=== PATIENT | female | born 1990 | race African-American/Black ===

== ENCOUNTER 2022-09-20 10:00 | Inpatient (IN) ==
[2022-09-20] MEDS: BETAMETH SODIUM PHOS/ACETATE 30 MG/5 ML VIAL IM SCH ×2 (11:38→23:56)
[2022-09-20] MEDS: LABETALOL 100 MG TABLET PO SCH (18:47)
[2022-09-20] MEDS ORDERED: guaiFENesin 200 MG/10 ML UDCUP PO PRN (22:47)
[2022-09-21] MEDS: LABETALOL 100 MG TABLET PO SCH ×3 (00:12→20:51)
[2022-09-21] MEDS ORDERED: CITRIC ACID/SODIUM CITRATE 30 ML UDCUP PO ONE ×3 (07:55→08:30)
[2022-09-21] MEDS ORDERED: METHYLERGONOVINE 0.2 MG/1 ML AMP IM PRN ×2 (07:55→07:57)
[2022-09-21] MEDS ORDERED: miSOPROStoL 200 MCG TABLET RECTAL PRN ×2 (07:55→07:57)
[2022-09-21] MEDS ORDERED: OXYTOCIN/LR 20 UNIT/1,000 ML BAG IV ONE ×2 (07:55→07:57)
[2022-09-21] MEDS ORDERED: TRANEXAMIC ACID 1,000 MG in SODIUM CHLORIDE 0.9% 100 ML IV PRN ×2 (07:55→07:57)
[2022-09-21] MEDS ORDERED: CARBOPROST TROMETHAMINE 250 MCG/ML AMP IM PRN ×2 (07:55→07:57)
[2022-09-21] MEDS ORDERED: FAMOTIDINE 20 MG/2 ML VIAL IV ONE (07:57)
[2022-09-21] MEDS ORDERED: OXYTOCIN 10 UNIT/ML VIAL IM ONE (07:59)
[2022-09-21] MEDS ORDERED: OXYTOCIN/LR 30 UNIT/1,000 ML BAG IV ONE ×2 (07:59→08:30)
[2022-09-21] MEDS ORDERED: LACTATED RINGERS 1,000 ML IV SCH (08:00)
[2022-09-21] MEDS ORDERED: ceFAZolin 2,000 MG/50 ML DUPLEX IV ONE (08:15)
[2022-09-21 08:22] LABS: Basophils % 0.2 % (0.0-0.8); Hematocrit 33.6 VOL% (35.7-47.0); Hemoglobin 10.8 GM/DL (12.0-16.0); Immature Granulocytes % 2.5 %; Immature Granulocytes Absolute 0.32 #; Lymphocytes # 1.1 10*3/uL (1.4-4.0); Lymphocytes % 8.7 % (21.3-54.2); Mean Corpuscular HGB Conc 32.1 GM/DL (32-36); Mean Platelet Volume 9.7 FL (9.6-12.0); Monocytes # 0.3 10*3/uL (0.11-0.8); Monocytes % 2.1 % (1.7-12.7); Neutrophils % 86.5 % (38.7-73.9); Platelet Count 343 T/CUMM (130-400); Red Blood Count 3.86 MC/CUMM (3.8-5.5); Red Cell Distribution Width 14.3 % (9.3-17.3); White Blood Count 12.9 T/CUMM (4-12)
[2022-09-21] MEDS ORDERED: ceFAZolin 3,000 MG in SYRINGE 1 EACH IV ONE ×2 (08:30→10:00)
[2022-09-21] MEDS ORDERED: INFLUENZA VIRUS VACCINE 0.5 ML SYRINGE IM ONE (08:40)
[2022-09-21 08:43] LABS: Albumin 2.6 G/DL (3.4-5.0); Bilirubin,Total 0.4 MG/DL (0.20-1.00); Osmolality,Calculated 277.4 MOS/KG (273-304); Potassium 3.9 MMOL/L (3.5-5.1); Total Protein 7.3 G/DL (6.4-8.2)
[2022-09-21 08:44] LABS: Albumin 2.6 G/DL (3.4-5.0); Bilirubin,Total 0.4 MG/DL (0.20-1.00); Osmolality,Calculated 277.4 MOS/KG (273-304); Total Protein 6.5 G/DL (6.4-8.2)
[2022-09-21 08:49] LABS: INR 0.9; PT Patient Result 10.2 SECS (10.1-12.1); Partial Thromboplastin Time 33.3 SECS (23.7-32.9)
[2022-09-21] MEDS ORDERED: PANTOPRAZOLE 40 MG VIAL IV SCH (09:00)
[2022-09-21] MEDS ORDERED: LABETALOL 100 MG TABLET PO SCH (09:00)
[2022-09-21] MEDS ORDERED: diphenhydrAMINE CAP 25 MG CAPSULE PO SCH (09:00)
[2022-09-21] MEDS: LACTATED RINGERS 1,000 ML IV SCH ×2 (09:10→22:00)
[2022-09-21] MEDS ORDERED: LACTATED RINGERS 1,000 ML IV ONE (09:34)
[2022-09-21] MEDS: MULTIVITAMIN (PRENATAL) TABLET PO SCH (09:39)
[2022-09-21] MEDS: FERROUS SULFATE 325 MG TABLET PO SCH (09:39)
[2022-09-21] MEDS ORDERED: PHENYLEPHRINE 1 MG/10 ML SYRINGE IV ONE ×2 (09:43→10:21)
[2022-09-21] MEDS ORDERED: KETOROLAC 30 MG/1 ML VIAL ONE (09:43)
[2022-09-21] MEDS ORDERED: ACETAMINOPHEN INJ 1,000 MG/100 ML VIAL IV ONE (09:43)
[2022-09-21] MEDS ORDERED: ONDANSETRON 4 MG/2 ML VIAL ONE (09:43)
[2022-09-21] MEDS ORDERED: buprenorphine HCL 0.3 MG/ML VIAL ONE (09:43)
[2022-09-21] MEDS ORDERED: DEXAMETHASONE 4 MG/1 ML VIAL ONE (09:43)
[2022-09-21 10:47] LABS: Bacteria,Urine Occasional /HPF (Few); Bilirubin,Urine Negative (Negative); Blood, Urine Negative (Negative); Glucose,Urine (UA) Negative (Negative); Ketones,Urine 15 mg/dL (Negative); Nitrite,Urine Negative (Negative); Protein,Urine Negative (Negative); RBC,Urine <1 /HPF (0-4); Urine Appearance Clear (Clear); Urine Color Yellow (Yellow); Urine Specific Gravity 1.015 (1.001-1.035); Urine Urobilinogen 0.2 eU/dL (<2.0); Urine pH 6.5 (4.5-8.0)
[2022-09-21 10:48] LABS: Cord Arterial Blood HCO3 21.5 MMOL/L
[2022-09-21 10:51] LABS: Cord Venous Blood HCO3 22.3 MMOL/L; Cord Venous Blood PCO2 53.1 MMHG; Cord Venous Blood PO2 23.3
[2022-09-21] MEDS: KETOROLAC 30 MG/1 ML VIAL IV SCH ×2 (15:54→21:59)
[2022-09-21] MEDS: ACETAMINOPHEN 500 MG TABLET PO SCH ×2 (15:55→20:51)
[2022-09-21] MEDS: ceFAZolin 2,000 MG/50 ML DUPLEX IV SCH (16:03)
[2022-09-21 18:26] LABS: Basophils % 0.1 % (0.0-0.8); Eosinophils % 0.1 % (0.00-10.9); Hematocrit 31.3 VOL% (35.7-47.0); Hemoglobin 10.3 GM/DL (12.0-16.0); Immature Granulocytes % 2.5 %; Immature Granulocytes Absolute 0.47 #; Lymphocytes # 1.2 10*3/uL (1.4-4.0); Lymphocytes % 6.5 % (21.3-54.2); Mean Corpuscular HGB Conc 32.9 GM/DL (32-36); Mean Corpuscular Volume 86.7 FL (87-102); Mean Platelet Volume 9.8 FL (9.6-12.0); Monocytes # 0.8 10*3/uL (0.11-0.8); Monocytes % 4.4 % (1.7-12.7); Neutrophils % 86.4 % (38.7-73.9); Platelet Count 319 T/CUMM (130-400); Red Blood Count 3.61 MC/CUMM (3.8-5.5); Red Cell Distribution Width 14.1 % (9.3-17.3); White Blood Count 18.5 T/CUMM (4-12)
[2022-09-22] MEDS: ceFAZolin 2,000 MG/50 ML DUPLEX IV SCH (00:32)
[2022-09-22] MEDS: KETOROLAC 30 MG/1 ML VIAL IV SCH (04:23)
[2022-09-22] MEDS: ACETAMINOPHEN 500 MG TABLET PO SCH ×2 (04:24→08:58)
[2022-09-22 06:30] LABS: Basophils % 0.1 % (0.0-0.8); Hematocrit 28.8 VOL% (35.7-47.0); Hemoglobin 9.3 GM/DL (12.0-16.0); Immature Granulocytes % 2.5 %; Immature Granulocytes Absolute 0.41 #; Lymphocytes # 1.6 10*3/uL (1.4-4.0); Lymphocytes % 10.1 % (21.3-54.2); Mean Corpuscular HGB Conc 32.3 GM/DL (32-36); Mean Corpuscular Volume 87.8 FL (87-102); Mean Platelet Volume 10.2 FL (9.6-12.0); Monocytes # 1.3 10*3/uL (0.11-0.8); Monocytes % 7.9 % (1.7-12.7); NRBC # 0.02 10*3/uL; Neutrophils % 79.4 % (38.7-73.9); Platelet Count 313 T/CUMM (130-400); Red Blood Count 3.28 MC/CUMM (3.8-5.5); Red Cell Distribution Width 14.3 % (9.3-17.3); White Blood Count 16.2 T/CUMM (4-12)
[2022-09-22] MEDS: MULTIVITAMIN (PRENATAL) TABLET PO SCH (08:52)
[2022-09-22] MEDS: DOCUSATE SODIUM 100 MG CAPSULE PO SCH ×2 (08:53→21:45)
[2022-09-22] MEDS: METOCLOPRAMIDE 10 MG TABLET PO SCH ×2 (08:54→21:44)
[2022-09-22] MEDS: MAGNESIUM HYDROXIDE SUSP 30 ML UDCUP PO SCH ×2 (10:38→21:44)
[2022-09-22] MEDS: LABETALOL 100 MG TABLET PO SCH (21:44)
[2022-09-23] MEDS: METOCLOPRAMIDE 10 MG TABLET PO SCH ×2 (05:55→19:08)
[2022-09-23] MEDS: DOCUSATE SODIUM 100 MG CAPSULE PO SCH ×2 (09:32→20:27)
[2022-09-23] MEDS: MULTIVITAMIN (PRENATAL) TABLET PO SCH (09:32)
[2022-09-23] MEDS: FERROUS SULFATE 325 MG TABLET PO SCH (09:32)
[2022-09-23] MEDS: MAGNESIUM HYDROXIDE SUSP 30 ML UDCUP PO SCH (09:32)
[2022-09-23] MEDS: IBUPROFEN 800 MG TABLET PO PRN (09:33)
[2022-09-24] MEDS: METOCLOPRAMIDE 10 MG TABLET PO SCH ×2 (00:04→09:43)
[2022-09-24] MEDS: MAGNESIUM HYDROXIDE SUSP 30 ML UDCUP PO SCH ×2 (00:04→09:43)
[2022-09-24] MEDS ORDERED: ALUMINUM/MAGNES/SIMETH MAX STR 30 ML UDCUP PO PRN (02:29)
[2022-09-24] MEDS: FERROUS SULFATE 325 MG TABLET PO SCH (08:52)
[2022-09-24] MEDS: DOCUSATE SODIUM 100 MG CAPSULE PO SCH (08:52)
[2022-09-24] MEDS: MULTIVITAMIN (PRENATAL) TABLET PO SCH (08:52)
[2022-09-24] MEDS: IBUPROFEN 800 MG TABLET PO PRN (08:57)
[2022-09-24 10:13] VITALS: BP 156/80
== END 2022-09-24 13:00 | disposition home or self-care (01) | DRG 540 ==
LOC: N.LDOUT 10:00 → N.LD 10:01 → N.OB 15:30 → N.LD 09-21 09:55 → N.OB 09-21 13:41
PROVIDERS: ADMIT Obstetrics & Gynecology; ATTEND Obstetrics & Gynecology
PROC: LDCSECT (ICD-10-PCS; 2022-09-21 08:00)